=== PATIENT | male | born 1995 | race Caucasian/White ===

== ENCOUNTER 2020-04-30 20:05 | Emergency (ER) | payer SELFPAY ==
[~2020-04-30] VITALS: Ht 167.7 cm; Wt 113.4 kg
[2020-04-30 20:10] VITALS: BP 166/85
--- NOTE | 2020-04-30 20:19 | ED EENT ---
History of Present Illness General Chief Complaint: Dental Problems/Pain Stated Complaint: TOOTHACHE Source: patient Exam Limitations: no limitations History of Present Illness Date Seen by Provider: Apr 30, 2020 Time Seen by Provider: 20:18 Initial Comments To ER with right lower dental pain for the past 2-3 days. He's had several broken teeth. Has an appointment with [facility]. Timing/Duration: abrupt Severity: moderate Location: dental Prearrival Treatment: no prearrival treatment Associated Symptoms: denies symptoms Allergies and Home Medications Allergies Coded Allergies: No Known Drug Allergies (Unverified , 04/30/20) Patient Home Medication List Home Medication List Reviewed: Yes Review of Systems Review of Systems Constitutional: see HPI Eyes: No Symptoms Reported Ears: No Symptoms Reported Nose: no symptoms reported Mouth: see HPI Throat: no symptoms reported Respiratory: no symptoms reported Cardiovascular: no symptoms reported Musculoskeletal: no symptoms reported Past Rbinqeb-Wepkqh-Tnmzff Hx Patient Social History Recent Foreign Travel: No Contact w/Someone Who Travel: No Physical Exam Vital Signs Vital Signs - First Documented 04/30/20 20:10 Temp 36.3 Pulse 80 Resp 18 B/P (MAP) 166/85 (112) Pulse Ox 97 O2 Delivery Room Air Height, Weight, BMI Height: '" Weight: lbs. oz. kg; BMI Method: General Appearance: WD/WN, no apparent distress Eyes: bilateral eye normal inspection, bilateral eye PERRL, bilateral eye EOMI Ears: bilateral ear auricle normal, bilateral ear canal normal, bilateral ear TM normal Mouth/Throat: other (multiple carious and fractured teeth, especially the lower molars on both sides. No palpable fluctuant abscess.) Neck: non-tender, full range of motion Respiratory: no respiratory distress, no accessory muscle use Neurologic/Psychiatric: alert, normal mood/affect Skin: normal color, warm/dry Progress/Results/Core Measures Results/Orders My Orders Orders - NELI NGUYỄN APRN Penicillin Vk Tablet (Veetid Tablet) (04/30/20 20:30) Rx-Hydrocodone/Apap 5-325 Mg (Rx-Vicodin (04/30/20 20:30) Vital Signs/I&O 04/30/20 20:10 Temp 36.3 Pulse 80 Resp 18 B/P (MAP) 166/85 (112) Pulse Ox 97 O2 Delivery Room Air Departure Communication (Admissions) given 1.8 ml injection of bupivicaine with epi for inferior alveolar nerve block Impression Primary Impression: Dental caries Additional Impression: Pain, dental Disposition: HOME, SELF-CARE Condition: Stable Departure-Patient Inst. Decision time for Depature: 20:25 Referrals: [facility] (PCP) Primary Care Physician Patient Instructions: Tooth Abscess (DC) Add. Discharge Instructions: 1. Call a dentist of her choosing tomorrow. Return to ER for any worsening. Antibiotics and pain medication as directed. All discharge instructions reviewed with patient and/or family. Voiced understanding. Scripts Amoxicillin/Potassium Clav (Augmentin 500-125 Tablet) 1 Each Tablet 1 EACH PO TID, #21 TAB Prov: NELI NGUYỄN APRN 04/30/20 NELI NGUYỄN APRN Apr 30, 2020 20:19
[2020-04-30] MEDS ORDERED: AMOX-355 PO (20:27)
[2020-04-30] MEDS ORDERED: AUGMENTIN 875 MG TAB (AMOXICILLIN/CLAVULANATE) PO SCH (20:30)
[2020-04-30] MEDS ORDERED: RX-HYDROCODONE/APAP 5/325 MG #4 TAB PK PO PRN (20:30)
[2020-04-30] MEDS ORDERED: PENICILLIN V K 250 MG TAB PO ONE (20:30)
== END 2020-04-30 20:51 | disposition home or self-care (01) ==
LOC: ER 20:06
DX: K02.9 Dental caries, unspecified (principal)
CPT/HCPCS: 99283

== ENCOUNTER 2020-05-02 04:44 | Emergency (ER) | payer SELFPAY ==
[~2020-05-02] VITALS: Ht 167.4 cm; Wt 117.9 kg
[~2020-05-02 04:44] MED LIST: AMOX-355 PO
[2020-05-02 04:55] VITALS: BP 154/85
[2020-05-02] MEDS ORDERED: KETOROLAC 60 MG/2 ML VIAL IM STA (05:05)
--- NOTE | 2020-05-02 05:05 | ED EENT ---
History of Present Illness General Chief Complaint: Dental Problems/Pain Stated Complaint: TOOTH INFECTION,PAIN IN MOUTH Source: patient Exam Limitations: no limitations History of Present Illness Date Seen by Provider: May 02, 2020 Time Seen by Provider: 05:00 Initial Comments 24-year-old male presents with left-sided dental pain. Patient was seen here on 04/30/2020 for similar symptoms. At that time he is given a prescription for amoxicillin and hydrocodone's. Patient states he put a temporary filling in. Patient presents because he is continuing had dental pain. He has no fevers chills. Reports he tried calling his dentist yesterday at [facility] and there was "no openings" patient states he feels amoxicillin and hydrocodone's taken as prescribed. Allergies and Home Medications Allergies Coded Allergies: No Known Drug Allergies (Unverified , 04/30/20) Home Medications Amoxicillin/Potassium Clav 1 Each Tablet, 1 EACH PO TID Prescribed by: NELI NGUYỄN on 04/30/202026 Patient Home Medication List Home Medication List Reviewed: Yes Review of Systems Review of Systems Constitutional: No chills, No fever Eyes: No Symptoms Reported Ears: No Symptoms Reported Nose: no symptoms reported Mouth: see HPI Throat: no symptoms reported Respiratory: no symptoms reported Cardiovascular: no symptoms reported Gastrointestinal: no symptoms reported Past Fsshbgh-Huxfim-Qbvooy Hx Past Med/Social Hx: Reviewed Nursing Past Med/Soc Hx Patient Social History 2nd Hand Smoke Exposure: No Recent Foreign Travel: No Contact w/Someone Who Travel: No Recent Hopitalizations: No Seasonal Allergies Seasonal Allergies: No Past Medical History Surgeries: No Respiratory: No Cardiac: No Neurological: No Genitourinary: No Gastrointestinal: No Musculoskeletal: No Endocrine: Yes Diabetes, Insulin dep HEENT: No Cancer: No Psychosocial: Yes Anxiety, Depression Integumentary: No Physical Exam Vital Signs Vital Signs - First Documented 05/02/20 04:55 Temp 36.2 Pulse 70 Resp 20 B/P (MAP) 154/85 (108) Pulse Ox 94 Height, Weight, BMI Height: '" Weight: lbs. oz. kg; 40.00 BMI Method: General Appearance: WD/WN, no apparent distress Mouth/Throat: other (there temporary fillings in place of low last 2 back teeth on the left lower side. Mild gum erythema but no noticeable abscess) Cardiovascular: normal peripheral pulses, regular rate, rhythm Respiratory: no respiratory distress, no accessory muscle use Gastrointestinal: soft; No distended Neurologic/Psychiatric: alert, normal mood/affect Skin: normal color, warm/dry Progress/Results/Core Measures Results/Orders My Orders Orders - JAY LORENZANA DO Ketorolac Injection (Toradol Injection) (05/02/20 05:05) Vital Signs/I&O 05/02/20 04:55 Temp 36.2 Pulse 70 Resp 20 B/P (MAP) 154/85 (108) Pulse Ox 94 Progress Progress Note : Time: 05:10 Progress Note Patient with no abscess noted. Discussed with patient that this time there is no further treatment available in the ER that he needs to see a dentist. Discussed with him that he may need to call around to find a dentist that hasn't emergency opening. Patient will be given a shot of Toradol to help with the inflammation and pain. Patient is discharged home in stable condition Departure Impression Primary Impression: Dental caries Disposition: 01 HOME, SELF-CARE Condition: Stable Departure-Patient Inst. Referrals: [facility] (PCP/Family) Primary Care Physician Patient Instructions: Dental Pain (DC), Tooth Decay, Adult, Tooth Abscess (DC) Add. Discharge Instructions: You will need to follow-up with a dentist as soon as possible Take your already prescribed medication as directed If you needed more or stronger pain medication you'll need to follow-up with your primary care provider Emergency department focuses on treating and ruling out life-threatening dise ases. Whenever possible, a diagnosis is given. However, most patients are given an impression based on their history, physical exam, and workup during your brief time in the ER. Information about probable diagnosis and other educational material has been provided. Please take the time to read and understand this information. It is very important that you follow up with a physician as discussed during the visit today. Failure to adhere to your follow-up instructions may lead to severe disability, injury, or so please make sure to keep your appointments or obtain one as requested. Please keep in mind the emergency department is not designed to your primary care or "family doctor" and nonurgent issues are best evaluated by an outpatient physician All discharge instructions reviewed with patient and/or family. Voiced understanding. JAY LORENZANA DO May 02, 2020 05:05
== END 2020-05-02 05:18 | disposition home or self-care (01) ==
LOC: EDUNIT# 04:44 → ER 04:45
DX: K02.9 Dental caries, unspecified (principal)
CPT/HCPCS: 99284

== ENCOUNTER 2021-06-24 21:13 | Emergency (ER) | payer SELFPAY ==
[2021-06-24] MEDS ORDERED: AMOXICILLIN 500 MG (POLYMOX) CAP PO STA (21:28)
[2021-06-24] MEDS ORDERED: KETOROLAC 60 MG/2 ML VIAL IM ONE (21:30)
[2021-06-24] MEDS ORDERED: AMOX500C2 PO (21:34)
--- NOTE | 2021-06-24 21:34 | ED EENT ---
History of Present Illness General Chief Complaint: Dental Problems/Pain Stated Complaint: DENTAL PAIN/THROAT PAIN/FEVER Source: patient Exam Limitations: no limitations (NELI NGUYỄN APRN) History of Present Illness Date Seen by Provider: Jun 24, 2021 Time Seen by Provider: 21:30 Initial Comments To ER with reports of throat pain and fever last night. He thinks it might be related to his teeth as he has several bad teeth. He is an insulin-dependent diabetic. He feels some pain and swelling primarily on the right side of his throat whenever he swallows. No cough no nausea no vomiting no body aches. Timing/Duration: abrupt Severity: moderate Location: throat Associated Symptoms: sore throat (NELI NGUYỄN APRN) Allergies and Home Medications Allergies Coded Allergies: No Known Drug Allergies (Unverified , 04/30/20) Patient Home Medication List Home Medication List Reviewed: Yes (NELI NGUYỄN APRN) Amoxicillin (Amoxicillin) 500 Mg Capsule, 500 MG PO TID Prescribed by: NELI NGUYỄN on 06/24/212133 Amoxicillin/Potassium Clav (Augmentin 500-125 Tablet) 1 Each Tablet, 1 EACH PO TID Prescribed by: NELI NGUYỄN on 04/30/202026 Review of Systems Review of Systems Constitutional: see HPI, fever Eyes: No Symptoms Reported Ears: No Symptoms Reported Nose: no symptoms reported Mouth: see HPI Throat: see HPI Respiratory: no symptoms reported Cardiovascular: no symptoms reported Musculoskeletal: no symptoms reported Skin: no symptoms reported Neurological: No Symptoms Reported Hematologic/Lymphatic: No Symptoms Reported Immunological/Allergic: no symptoms reported (NELI NGUYỄN APRN) Past Kmbzxpo-Ccsfku-Puytun Hx Seasonal Allergies Seasonal Allergies: No (NELI NGUYỄN APRN) Past Medical History Surgeries: No Respiratory: No Cardiac: No Neurological: No Genitourinary: No Gastrointestinal: No Musculoskeletal: No Endocrine: Yes Diabetes, Insulin dep HEENT: No Cancer: No Psychosocial: Yes Anxiety, Depression Integumentary: No (NELI NGUYỄN APRN) Physical Exam Vital Signs Vital Signs - First Documented 06/24/21 21:25 Temp 37.3 Pulse 78 Resp 18 B/P (MAP) 125/80 (95) Pulse Ox 98 O2 Delivery Room Air (KENYA,MONTSERRAT K DO) Height, Weight, BMI Height: '" Weight: lbs. oz. kg; 42.00 BMI Method: General Appearance: WD/WN, no apparent distress Eyes: bilateral eye normal inspection, bilateral eye PERRL, bilateral eye EOMI Ears: bilateral ear auricle normal, bilateral ear canal normal, bilateral ear TM normal Mouth/Throat: No mandibular swelling; other (There is bilateral tonsillar enlargement with right tonsillar exudate. There is no uvular deviation or suggestion of peritonsillar abscess. No palpable adenopathy of the neck. No trismus no stridor.) Neck: non-tender, full range of motion; No lymphadenopathy (R), No lym phadenopathy (L) Respiratory: no respiratory distress, no accessory muscle use Gastrointestinal: normal bowel sounds, non tender, soft Neurologic/Psychiatric: alert, normal mood/affect, oriented x 3 Skin: normal color, warm/dry (NELI NGUYỄN APRN) Progress/Results/Core Measures Results/Orders Lab Results Laboratory Tests Test 06/24/21 21:35 Range/Units Group A Streptococcus Screen NEGATIVE NEGATIVE (MONTSERRAT ZAMBRANO DO) Medications Given in ED Current Medications Medications Dose Ordered Sig/Aurea Route Start Time Stop Time Status Last Admin Dose Admin Ketorolac Tromethamine 60 mg ONCE ONCE IM 06/24/21 21:30 06/24/21 21:31 DC 06/24/21 21:36 60 MG (MONTSERRAT ZAMBRANO DO) Vital Signs/I&O 06/24/21 06/24/21 21:25 21:59 Temp 37.3 37.3 Pulse 78 78 Resp 18 18 B/P (MAP) 125/80 (95) 125/80 Pulse Ox 98 98 O2 Delivery Room Air Room Air (MONTSERRAT ZAMBRANO DO) Departure Impression Primary Impression: Exudative tonsillitis Disposition: HOME, SELF-CARE Condition: Stable Departure-Patient Inst. Decision time for Depature: 21:32 (NELI NGUYỄN APRN) Referrals: [facility] (PCP/Family) Primary Care Physician Patient Instructions: Sore Throat, Adult ED Add. Discharge Instructions: 1. Continue Tylenol and ibuprofen. Increase fluids. Take the antibiotics as directed. Return to ER for any concerns such as fevers or persistent symptoms Or development of any new symptoms. All discharge instructions reviewed with patient and/or family. Voiced understanding. Scripts Amoxicillin (Amoxicillin) 500 Mg Capsule 500 MG PO TID, #21 CAP 0 Refills Prov: NELI NGUYỄN APRN 06/24/21 Work/School Note: Work Release Form Date Seen in the Emergency Department: Jun 24, 2021 Return to Work: Jun 27, 2021 ATTENDING PHYSICIAN NOTE: I WAS PHYSICALLY PRESENT EMERGENCY ROOM PHYSICIAN WHEN THIS PATIENT WAS IN ER, BUT I WAS NOT INVOLVED IN ANY DECISION MAKING OR ANY CARE OF THIS PATIENT. (MONTSERRAT ZAMBRANO DO) NELI NGUYỄN APRN Jun 24, 2021 21:34 MONTSERRAT ZAMBRANO DO Jun 25, 2021 01:56
[2021-06-24 21:59] VITALS: BP 125/80
== END 2021-06-24 21:59 | disposition home or self-care (01) ==
LOC: EDUNIT# 21:13 → ER 21:15
DX: J03.90 Acute tonsillitis, unspecified (principal); E11.9 Type 2 diabetes mellitus without complications; Z79.4 Long term (current) use of insulin
CPT/HCPCS: 87430; 99284